=== PATIENT | male | born 1985 | race Hispanic/Latino ===

== ENCOUNTER 2018-08-18 17:19 | Observation (INO) | payer SELFPAY ==
--- NOTE | 2018-08-18 18:36 | RAD REPORT ---
EXAM DESCRIPTION: RAD - Chest Pa And Lat (2 Views) - 08/18/2018 6:31 pm CLINICAL HISTORY: Chest pain;Cough;Fever Chest pain. COMPARISON: No comparisons FINDINGS: Ill-defined opacities are present in both posterior lung bases as well as the right mid rodolfo ng and medial anterior left lung base likely representing pneumonia. The heart is normal in size. No displaced fractures. IMPRESSION: Multiple areas of infiltrate are seen bilaterally compatible with multifocal pneumonia.
[2018-08-18] MEDS ORDERED: IBUPROFEN 400 MG TAB ONE (18:52)
[2018-08-18] MEDS ORDERED: ALBUTEROL 2.5 MG/3 ML NEB SOL ONE (19:03)
[2018-08-18] MEDS ORDERED: IPRATROPIUM BROM 0.5MG/2.5ML ONE (19:03)
[2018-08-18 19:23] LABS: ALT/SGPT 26 U/L (12-78); AST/SGOT 8 U/L (15-37); Alkaline Phosphatase 80 U/L (45-117); BUN Blood Urea Nitrogen 16 mg/dL (7-18); Bicarbonate 29 mmol/L (21-32); Bilirubin Direct 0.1 mg/dL (0-0.2); Bilirubin Total 0.3 mg/dL (0.2-1.0); Glucose Level 93 mg/dL (74-106); Potassium 3.9 mmol/L (3.5-5.1); Protein, Total 8.5 g/dL (6.4-8.2); Sodium Level 138 mmol/L (136-145); Troponin (Emerg Dept Use Only) < 0.02 ng/mL (0.0-0.045)
[2018-08-18 19:25] LABS: Absolute Lymphocytes (CBC) 1.9 K/uL (0.7-4.9); Absolute Monocytes 0.9 K/uL (0.1-1.3); Absolute Neutrophil 8.8 K/uL (1.8-8.0); Basophils % 0.4 % (0-1.3); Eosinophils % 0.8 % (0-4.4); Hematocrit 42.9 % (39.6-49.0); Lymphocytes % 16.2 % (15.3-44.8); MPV 8.4 fL (7.6-11.3); Monocytes % 7.6 % (3.3-12.3); RBC Red Blood Cell Count 5.08 M/uL (4.33-5.43)
[2018-08-18] MEDS ORDERED: AZITHROMYCIN 500 MG/250 ML BAG ONE (19:35)
[2018-08-18] MEDS ORDERED: CEFTRIAXONE/SWI 1gm 1 GM/10 ML SYR ONE (19:35)
--- NOTE | 2018-08-18 21:04 | ER ---
Nurse's Notes [facility] Name: Frankie Garcia Age: 33 yrs Sex: Male : 1985 Arrival Date: 08/18/2018 Time: 17:23 Bed 28 Private MD: None, None Diagnosis: Pneumonia, unspecified organism-bilateral Presentation: 08/18 17:23 Presenting complaint: Patient states: i have this chest pain since yesterday, stabbing, hj heavy chest pain and its hard to breathe; pain is 10/10; denies radiating pain; denies N/V; reports been sick with flu for a couple of days;. Transition of care: patient was not received from another setting of care. Onset of symptoms was August 18, 2018. Risk Assessment: Do you want to hurt yourself or someone else? Patient reports no desire to harm self or others. Initial Sepsis Screen: Does the patient meet any 2 criteria? No. Patient's initial sepsis screen is negative. Does the patient have a suspected source of infection? No. Patient's initial sepsis screen is negative. Care prior to arrival: None. 17:23 Method Of Arrival: Ambulatory 17:23 Acuity: ELLIE 3 hj Triage Assessment: 17:26 General: Appears in no apparent distress. uncomfortable, Behavior is calm, cooperative, hj appropriate for age. Pain: Complains of pain in chest Pain currently is 10 out of 10 on a pain scale. Cardiovascular: Reports chest pain. Historical: - Allergies: 17:25 No Known Allergies; hj - Home Meds: 17:25 None [Active]; hj - PMHx: 17:25 None; hj - PSHx: 17:25 None; hj - Immunization history:: Adult Immunizations up to date. - Social history:: Smoking status: Patient uses tobacco products, Patient uses alcohol. - Ebola Screening: : Patient negative for fever greater than or equal to 101.5 degrees Fahrenheit, and additional compatible Ebola Virus Disease symptoms Patient denies exposure to infectious person Patient denies travel to an Ebola-affected area in the 21 days before illness onset. Screenin:26 Abuse screen: Denies threats or abuse. Denies injuries from another. Nutritional hj screening: No deficits noted. Tuberculosis screening: No symptoms or risk factors identified. Fall Risk None identified. Assessment: 17:27 Pain: Pain does not radiate. Pain began 1 day ago. hj 18:25 General: Appears uncomfortable, slender, well groomed, well developed, well nourished, tl3 Behavior is calm, cooperative, appropriate for age. Neuro: Level of Consciousness is awake, alert, obeys commands, Oriented to person, place, time, situation, Appropriate for age. Cardiovascular: Heart tones S1 S2 present Patient's skin is warm and dry. Rhythm is regular. Respiratory: Airway is patent Respiratory effort is even, unlabored, Respiratory pattern is regular, symmetrical. Respiratory: Reports cough that is hacking, persistent. GI: No deficits noted. No signs and/or symptoms were reported involving the gastrointestinal system. : No deficits noted. No signs and/or symptoms were reported regarding the genitourinary system. 20:29 Reassessment: Patient appears in no apparent distress at this time. No changes from tl3 previously documented assessment. Patient and/or family updated on plan of care and expected duration. Pain level reassessed. Patient is alert, oriented x 3, equal unlabored respirations, skin warm/dry/pink. 21:07 Reassessment: Patient appears in no apparent distress at this time. No changes from tl3 previously documented assessment. Patient and/or family updated on plan of care and expected duration. Pain level reassessed. Patient is alert, oriented x 3, equal unlabored respirations, skin warm/dry/pink. pt quietly watching TV, in no acute distress, no needs at this time. 23:22 Reassessment: Patient appears in no apparent distress at this time. No changes from tl3 previously documented assessment. Patient and/or family updated on plan of care and expected duration. Pain level reassessed. Patient is alert, oriented x 3, equal unlabored respirations, skin warm/dry/pink. report called to Tigist WINKLER. Vital Signs: 17:27 BP 121 / 81; Pulse 106; Resp 20; Temp 100.8(O); Pulse Ox 97% on R/A; Weight 99.79 kg; hj Height 6 ft. 0 in. (182.88 cm); Pain 10/10; 20:29 BP 118 / 92; Pulse 104; Resp 26; Pulse Ox 98% on R/A; tl3 21:07 BP 111 / 79; Pulse 92; Resp 22; Pulse Ox 94% on R/A; tl3 23:22 BP 102 / 69; Pulse 85; Resp 22; Pulse Ox 94% ; tl3 17:27 Body Mass Index 29.84 (99.79 kg, 182.88 cm) ED Course: 17:23 Patient arrived in ED. mr 17:23 None, None is Private Physician. mr 17:25 Triage completed. hj 17:26 Arm band placed on right wrist. hj 17:27 Patient has correct armband on for positive identification. Placed in gown. Bed in low hj position. Call light in reach. Side rails up X 1. court recording monitor on. Pulse ox on. NIBP on. 17:27 Patient maintains SpO2 saturation greater than 95% on room air. hj 17:46 EKG done, by surveying technician. reviewed by Alvarez Aleman MD. sm3 18:09 Anisa Mclaughlin, CATHI is Primary Nurse. tl3 18:14 Jesse Pritchard ATM SERVICER is PHCP. pm1 18:14 Alvarez Aleman MD is Attending Physician. pm1 18:22 No provider procedures requiring assistance completed. Flu and/or RSV swab sent to lab. tl3 Inserted saline lock: 20 gauge in left antecubital area, using aseptic technique. Blood collected. 18:23 Patient moved to radiology. tl3 18:23 Chest Pa And Lat (2 Views) XRAY Sent. tl3 18:28 Chest Pa And Lat (2 Views) XRAY In Process Unspecified. EDMS 19:09 Initial lab(s) drawn, by ED staff, sent to lab. First set of blood cultures drawn LAC jp3 via 20-gauge IV. 19:22 Second set of blood cultures drawn LAC via 21-gauge Butterfly needle. jp3 19:27 Blood Culture Adult (2) Sent. jp3 19:27 Lactate Sent. jp3 21:02 Jennifer Sierra MD is Hospitalizing Provider. pm1 23:22 Patient admitted, IV remains in place. tl3 Administered Medications: 18:46 Drug: Ibuprofen 800 mg Route: PO; tl3 19:01 Follow up: Response: No adverse reaction tl3 18:55 Drug: Albuterol 2.5 mg Route: Inhalation; tl3 21:07 Follow up: Response: No adverse reaction tl3 18:55 Drug: AtroVENT Aerosol 0.5 mg Route: Inhalation; tl3 21:05 Follow up: Response: No adverse reaction tl3 19:30 Drug: Rocephin 1 grams {Note: IVP.} Route: IV; Rate: calculated rate; Site: left tl3 antecubital; 19:38 Follow up: IV Status: Completed infusion; IV Intake: 20ml tl3 19:37 Drug: AZITHromycin 500 mg Route: IVPB; Infused Over: 1 hrs; Site: left antecubital; tl3 Delivery: Primary tubing; 21:04 Follow up: IV Status: Completed infusion; IV Intake: 250ml tl3 Intake: 19:38 IV: 20ml; Total: 20ml. tl3 21:04 IV: 250ml; Total: 270ml. tl3 Outcome: 21:03 Decision to Hospitalize by Provider. pm1 23:22 Admitted to Tele accompanied by tech, via wheelchair, with chart, Report called to 3 Tigist WINKLER 23:26 Condition: stable tl3 23:43 Patient left the ED. 3 Signatures: Dispatcher [employer] EDLora Ybarra mr Jim Yeh RN RN Jesse Pritchard NP ATM SERVICER pm1 Anisa Mclaughlin RN RN 3 Brittany Jenkins 3 Calvin Flores jp3 Corrections: (The following items were deleted from the chart) 17:26 17:23 Presenting complaint: Patient states: i have this chest pain since yesterday, hj stabbing, heavy chest pain and its hard to breathe; pain is 10/10; denies radiating pain; denies N/V; hj 17:30 17:27 Pulse 106bpm; Resp 20bpm; Pulse Ox 97% RA; Temp 100.8F Oral; 99.79 kg; Height 6 hj ft. 0 in.; BMI: 29.8; Pain 10/10; hj
--- NOTE | 2018-08-18 21:04 | EDPHYS ---
Physician Documentation [facility] Name: Frankie Garcia Age: 33 yrs Sex: Male : 1985 Arrival Date: 08/18/2018 Time: 17:23 Bed 28 Private MD: None, None ED Physician Alvarez Aleman HPI: 08/18 20:00 This 33 yrs old Male presents to ER via Ambulatory with complaints of Chest pm1 Pain. 20:00 The patient or guardian reports chest pain that is located primarily in the anterior pm1 chest wall, right. The pain does not radiate. Associated signs and symptoms: Pertinent positives: cough, shortness of breath, Fever, Pertinent negatives: abdominal pain, nausea, vomiting, Diarrhea. The chest pain is described as aching. Duration: The patient or guardian reports a single episode, that is still ongoing. Modifying factors: The symptoms are alleviated by nothing. the symptoms are aggravated by nothing. The patient has not recently seen a physician. Historical: - Allergies: 17:25 No Known Allergies; hj - Home Meds: 17:25 None [Active]; hj - PMHx: 17:25 None; hj - PSHx: 17:25 None; hj - Immunization history:: Adult Immunizations up to date. - Social history:: Smoking status: Patient uses tobacco products, Patient uses alcohol. - Ebola Screening: : Patient negative for fever greater than or equal to 101.5 degrees Fahrenheit, and additional compatible Ebola Virus Disease symptoms Patient denies exposure to infectious person Patient denies travel to an Ebola-affected area in the 21 days before illness onset. ROS: 20:00 Eyes: Negative for injury, pain, redness, and discharge, ENT: Negative for injury, pm1 pain, and discharge, Neck: Negative for injury, pain, and swelling. 20:00 Cardiovascular: Negative for chest pain, palpitations, and edema. 20:00 Abdomen/GI: Negative for abdominal pain, nausea, vomiting, diarrhea, and constipation, Back: Negative for injury and pain, : Negative for injury, bleeding, discharge, and swelling, MS/Extremity: Negative for injury and deformity, Skin: Negative for injury, rash, and discoloration, Neuro: Negative for headache, weakness, numbness, tingling, and seizure. 20:00 Constitutional: Positive for fever, Negative for poor PO intake. 20:00 Respiratory: Positive for cough, shortness of breath, Negative for sputum production, wheezing. Exam: 20:00 Constitutional: This is a well developed, well nourished patient who is awake, alert, pm1 and in no acute distress. Head/Face: Normocephalic, atraumatic. Eyes: Pupils equal round and reactive to light, extra-ocular motions intact. Lids and lashes normal. Conjunctiva and sclera are non-icteric and not injected. Cornea within normal limits. Periorbital areas with no swelling, redness, or edema. ENT: Nares patent. No nasal discharge, no septal abnormalities noted. Tympanic membranes are normal and external auditory canals are clear. Oropharynx with no redness, swelling, or masses, exudates, or evidence of obstruction, uvula midline. Mucous membranes moist. Neck: Trachea midline, no thyromegaly or masses palpated, and no cervical lymphadenopathy. Supple, full range of motion without nuchal rigidity, or vertebral point tenderness. No Meningismus. Chest/axilla: Normal chest wall appearance and motion. Nontender with no deformity. No lesions are appreciated. Cardiovascular: Regular rate and rhythm with a normal S1 and S2. No gallops, murmurs, or rubs. Normal PMI, no JVD. No pulse deficits. 20:00 Abdomen/GI: Soft, non-tender, with normal bowel sounds. No distension or tympany. No guarding or rebound. No evidence of tenderness throughout. Back: No spinal tenderness. No costovertebral tenderness. Full range of motion. Skin: Warm, dry with normal turgor. Normal color with no rashes, no lesions, and no evidence of cellulitis. MS/ Extremity: Pulses equal, no cyanosis. Neurovascular intact. Full, normal range of motion. 20:00 Respiratory: the patient does not display signs of respiratory distress, Respirations: normal, Breath sounds: wheezing: is scattered. 20:00 Neuro: Orientation: is normal, Motor: is normal, moves all fours. Vital Signs: 17:27 BP 121 / 81; Pulse 106; Resp 20; Temp 100.8(O); Pulse Ox 97% on R/A; Weight 99.79 kg; hj Height 6 ft. 0 in. (182.88 cm); Pain 10/10; 20:29 BP 118 / 92; Pulse 104; Resp 26; Pulse Ox 98% on R/A; tl3 21:07 BP 111 / 79; Pulse 92; Resp 22; Pulse Ox 94% on R/A; tl3 23:22 BP 102 / 69; Pulse 85; Resp 22; Pulse Ox 94% ; tl3 17:27 Body Mass Index 29.84 (99.79 kg, 182.88 cm) MDM: 18:30 Patient medically screened. pm1 20:00 Data reviewed: vital signs. Data interpreted: Pulse oximetry: on room air is 98 %. pm1 Interpretation: normal. 21:01 Physician consultation: Jennifer Sierra MD was contacted at 21:01, regarding admission, pm1 patient's condition, and will see patient in ED. 08/18 18:14 Order name: Flu; Complete Time: 19:10 pm1 08/18 18:52 Order name: Troponin (emerg Dept Use Only); Complete Time: 19:24 pm1 08/18 18:52 Order name: Basic Metabolic Panel; Complete Time: 19:24 pm1 08/18 18:52 Order name: Blood Culture Adult (2) pm1 08/18 18:52 Order name: CBC with Diff; Complete Time: 19:49 pm1 08/18 18:52 Order name: Lactate; Complete Time: 19:49 pm1 08/18 18:14 Order name: Chest Pa And Lat (2 Views) XRAY; Complete Time: 18:44 pm1 08/18 18:52 Order name: LFT's; Complete Time: 19:24 pm1 08/18 18:52 Order name: Procalcitonin; Complete Time: 19:49 pm1 08/18 17:52 Order name: EKG; Complete Time: 17:52 08/18 18:52 Order name: Labs collected and sent; Complete Time: 18:55 pm1 08/18 18:52 Order name: O2 Per Protocol; Complete Time: 18:55 pm1 08/18 18:52 Order name: O2 Sat Monitoring; Complete Time: 18:55 pm1 Administered Medications: 18:46 Drug: Ibuprofen 800 mg Route: PO; tl3 19:01 Follow up: Response: No adverse reaction tl3 18:55 Drug: Albuterol 2.5 mg Route: Inhalation; tl3 21:07 Follow up: Response: No adverse reaction tl3 18:55 Drug: AtroVENT Aerosol 0.5 mg Route: Inhalation; tl3 21:05 Follow up: Response: No adverse reaction tl3 19:30 Drug: Rocephin 1 grams {Note: IVP.} Route: IV; Rate: calculated rate; Site: left tl3 antecubital; 19:38 Follow up: IV Status: Completed infusion; IV Intake: 20ml tl3 19:37 Drug: AZITHromycin 500 mg Route: IVPB; Infused Over: 1 hrs; Site: left antecubital; tl3 Delivery: Primary tubing; 21:04 Follow up: IV Status: Completed infusion; IV Intake: 250ml tl3 Disposition: 08/19 09:42 Co-signature as Attending Physician, Alvarez Aleman MD I agree with the assessment and kdr plan of care. Disposition: 08/18/18 21:03 Hospitalization ordered by Jennifer Sierra for Inpatient Admission. Preliminary diagnosis is Pneumonia, unspecified organism - bilateral. - Bed requested for Telemetry/MedSurg (Inpatient). - Status is Inpatient Admission. tl3 - Condition is Stable. - Problem is new. - Symptoms have improved. UTI on Admission? No Signatures: Dispatcher [employer] EDMS Alvarez Aleman MD MD [facility] Jim Yeh RN RN Adelina Orr RN RN Jesse Pritchard, [employer] EQUIPMENT TECH pm1 Anisa Mclaughlin RN RN tl3 Corrections: (The following items were deleted from the chart) 08/18 23:07 21:03 Hospitalization Ordered by Jennifer Sierra MD for Inpatient Admission. Preliminary cg diagnosis is Pneumonia, unspecified organism - bilateral. Bed requested for Telemetry/MedSurg (Inpatient). Status is Inpatient Admission. Condition is Stable. Problem is new. Symptoms have improved. UTI on Admission? No. pm1 23:43 23:07 08/18/2018 21:03 Hospitalization Ordered by Jennifer Sierra MD for Inpatient tl3 Admission. Preliminary diagnosis is Pneumonia, unspecified organism - bilateral. Bed requested for Telemetry/MedSurg (Inpatient). Status is Inpatient Admission. Condition is Stable. Problem is new. Symptoms have improved. UTI on Admission? No. cg
--- NOTE | 2018-08-18 22:32 | P.HP ---
Certification for Inpatient Patient admitted to: Inpatient With expected LOS: >2 Midnights Practitioner: I am a practitioner with admitting privileges, knowledge of patient current condition, hospital course, and medical plan of care. Services: Services provided to patient in accordance with Admission requirements found in Title 42 Section 412.3 of the Code of Federal Regulations Patient History Date of Service: 08/18/18 Reason for admission: bilateral pneumonia History of Present Illness: Mr Garcia is a 33 years old male who about 1 week ago start with flu like symptoms. For the last couple of days, he was feeling progressively worse, with subjective fever, sweating episodes, productive cough, and right side chest pain , 10/10 of intensity, worsening with breathing movements. He was taking over the counter medication without any improvement. At arrival, he was febrile 100.8 F, tachycardic 108 bpm, O2 sat 97% on RA. Lab work shows leukocytosis 11.7K, no bands, with normal lactate and procalcitonin. CXR remarkable for bilateral patchy infiltrate consistent with pneumonia. Home medications list reviewed: Yes - Past Medical/Surgical History Past Medical History: Reviewed- Non-Contributory Past Surgical History: Reviewed- Non-Contributory - Family History Family History: Reviewed- Non-Contributory - Social History Smoking Status: Current every day smoker Counseled patient to stop smoking for: less than 10 minutes Smoking therapy provided: Yes Patient receptive to therapy: No Alcohol use: Yes CD- Drugs: No Place of Residence: Home Review of Systems 10-point ROS is otherwise unremarkable Physical Examination - Physical Exam General: Alert, In no apparent distress HEENT: Atraumatic, PERRLA, Mucous membr. moist/pink, EOMI, Sclerae nonicteric Neck: Supple, 2+ carotid pulse no bruit, No LAD, Without JVD or thyroid abnormality Respiratory: Normal air movement, Crackles/rales (bibasilar crackles) Cardiovascular: Regular rate/rhythm, Normal S1 S2 Gastrointestinal: Normal bowel sounds, No tenderness Musculoskeletal: No tenderness Integumentary: No rashes Neurological: Normal gait, Normal speech, Normal strength at 5/5 x4 extr, Normal tone, Normal affect Lymphatics: No axilla or inguinal lymphadenopathy - Studies Laboratory Data (last 24 hrs) 08/18/18 18:23: WBC 11.7 H, Hgb 14.5, Hct 42.9, Plt Count 404 08/18/18 18:23: Sodium 138, Potassium 3.9, BUN 16, Creatinine 1.05, Glucose 93, Total Bilirubin 0.3, AST 8 L, ALT 26, Alkaline Phosphatase 80 Microbiology Data (last 24 hrs): 08/18/18 18:20 Nasopharnyx Influenza Type A Antigen Screen - Final 08/18/18 18:20 Nasopharnyx Influenza Type B Antigen Screen - Final Assessment and Plan - Problems (Diagnosis) (1) Bilateral pneumonia Current Visit: Yes Status: Acute Qualifiers: Pneumonia type: due to unspecified organism Lung location: unspecified part of lung Qualified Code(s): J18.9 - Pneumonia, unspecified organism (2) Tobacco abuse Current Visit: Yes Status: Acute - Plan The patient will be admitted to the hospital due to bilateral pneumonia. He is hemodynamically stable. Will order empiric treatment with IV Levaquin. Start breathing treatments as needed, pain medication for pleuritic chest pain. Consult Dr Montano for further recommendations. - Advance Directives Does patient have a Living Will: No Does patient have a Durable POA for Healthcare: No - Code Status/Comfort Care Code Status Assessed: Yes Code Status: Full Code
[2018-08-18] MEDS ORDERED: Levofloxacin 750mg IV 750 MG/150 ML BAG IV SCH (23:31)
[2018-08-18] MEDS ORDERED: NA CHLORIDE 0.9% 1,000 ML IV SCH (23:31)
[2018-08-18] MEDS ORDERED: ALBUTEROL 2.5 MG/3 ML NEB SOL NEB PRN (23:31)
[2018-08-18] MEDS ORDERED: ONDANSETRON 4 MG/2 ML VIAL IV PRN (23:31)
[2018-08-18] MEDS ORDERED: KETOROLAC 30 MG/ML INJ IV PRN (23:31)
[2018-08-18] MEDS ORDERED: ACETAMINOPHEN 500 MG TAB PO PRN (23:31)
[2018-08-18] MEDS ORDERED: IPRATROPIUM BROM 0.5MG/2.5ML NEB PRN (23:31)
[2018-08-19 04:06] LABS: Absolute Lymphocytes (CBC) 2.3 K/uL (0.7-4.9); Absolute Monocytes 1.3 K/uL (0.1-1.3); Absolute Neutrophil 5.9 K/uL (1.8-8.0); Eosinophils % 1.6 % (0-4.4); Hematocrit 39.5 % (39.6-49.0); Lymphocytes % 23.3 % (15.3-44.8); MPV 7.9 fL (7.6-11.3); Monocytes % 13.2 % (3.3-12.3); RBC Red Blood Cell Count 4.67 M/uL (4.33-5.43)
[2018-08-19 04:18] LABS: BUN Blood Urea Nitrogen 12 mg/dL (7-18); Bicarbonate 30 mmol/L (21-32); Glucose Level 107 mg/dL (74-106); Sodium Level 141 mmol/L (136-145)
--- NOTE | 2018-08-19 06:29 | EKG ---
Test Date: 2018-08-18 Test Time: 17:26:17 Inspector And Clipper: EVARISTO MEASUREMENT RESULTS: Intervals: Rate: 102 HI: 124 QRSD: 84 QT: 320 QTc: 417 [place]: P: 46 HI: 124 QRS: 99 T: 22 INTERPRETIVE STATEMENTS: Sinus tachycardia Rightward axis Borderline ECG No previous ECG available for comparison Electronically Signed On 08-19-18 06:28:17 AUTOMOTIVE PARTS COUNTER ASSISTANT by Khurram Watson
[2018-08-19] MEDS ORDERED: INFLUENZA VACCINE (for 3y+) 0.5 ML DOSE IMVAC ONE (08:00)
--- NOTE | 2018-08-19 08:28 | P.CNS ---
Date of Consult: 08/19/18 Chief Complaint: bilateral pneumonia History of Present Illness: Patient is 33 years of age had a flu-like illness about a week ago his admission to this hospital was precipitated by a sudden onset of chest discomfort denies any fever chills chest pain and denies any shortness of breath cough sputum or hemoptysis is chest pain has resolved patient is an active mi smoker no medical history does not take any medications is not see any doctors Allergies No Known Allergies Allergy (Verified 08/19/18 00:07) Home Medications: NK [No Home Meds] 08/19/18 - Past Medical/Surgical History Diabetic: No - Family History Father Medical History: Heart disease Mother Medical History: Diabetes - Social History Alcohol use: Yes CD- Drugs: No Caffeine use: Yes Place of Residence: Home Review of Systems 10-point ROS is otherwise unremarkable Physical Examination Temp Pulse Resp BP Pulse Ox 97.9 F 84 17 122/73 96 08/19/18 04:00 08/19/18 04:00 08/19/18 04:00 08/19/18 04:00 08/19/18 04:00 General: Alert, In no apparent distress, Oriented x3 Neck: Supple Respiratory: Clear to auscultation bilaterally Cardiovascular: No edema, Regular rate/rhythm Gastrointestinal: Normal bowel sounds, Soft and benign Laboratory Data (last 24 hrs) 08/18/18 18:23: WBC 11.7 H, Hgb 14.5, Hct 42.9, Plt Count 404 08/18/18 18:23: Sodium 138, Potassium 3.9, BUN 16, Creatinine 1.05, Glucose 93, Total Bilirubin 0.3, AST 8 L, ALT 26, Alkaline Phosphatase 80 - Problems (1) Bilateral pneumonia Onset Date: 08/19/18 Current Visit: Yes Status: Acute Plan: Patient is 33 years of age admitted with sudden onset of chest pain that was preceded by a viral flu-like illness he is doing much better chest x-ray questionable patchy changes labs reviewed unremarkable pro calcitonin level is negative most likely he has had a viral pneumonitis patient can be discharged home on low-dose prednisone 10 mg twice a day for 10 days he is to follow up with me in 2 weeks vital signs are all satisfactory oxygenation is satisfactory slight fever since admission Dc IV fluids add Zithromax the time of discharge Qualifiers: Pneumonia type: due to unspecified organism Lung location: unspecified part of lung Qualified Code(s): J18.9 - Pneumonia, unspecified organism
[2018-08-19] MEDS ORDERED: ENOXAPARIN 40 MG/0.4 ML SQ SCH (09:00)
[2018-08-19] MEDS ORDERED: AZITHROMYCIN 250 MG TAB PO SCH (09:00)
[2018-08-19] MEDS ORDERED: predniSONE 20 MG TAB PO SCH (09:00)
[2018-08-19] MEDS ORDERED: BENZONATATE 100 MG CAP PO PRN (09:58)
--- NOTE | 2018-08-19 10:02 | P.DS ---
Admission Date: 08/18/18 Discharge Date: 08/19/18 Primary Care Provider: none Disposition: ROUTINE DISCHARGE Discharge Condition: FAIR Reason for Admission: bilateral pneumonia Consultations: Pulmonary-Dr. Motnano Procedures: CXR: COMPARISON: No comparisons FINDINGS: Ill-defined opacities are present in both posterior lung bases as well as the right mid lung and medial anterior left lung base likely representing pneumonia. The heart is normal in size. No displaced fractures. IMPRESSION: Multiple areas of infiltrate are seen bilaterally compatible with multifocal pneumonia. Medical Problem List: Bilateral pneumonia likely viral pneumonitis Tobacco abuse Brief History of Present Illness: 33-year-old male presented to the emergency room with cough, congestion and shortness of breath. Patient was ill about a week ago with a viral illness. Patient came to the ER for further evaluation. Hospital Course: Patient presented with shortness of breath and recent viral illness. Patient found to have bilateral pneumonia. Patient seen and evaluated by pulmonology. Chest x-ray reviewed. Pro calcitonin and lactic acid negative. Room-air saturations within normal range. Lab improved. Patient hemodynamically stable at discharge. Patient does not appear septic. Patient likely with underlying viral pneumonitis as per pulmonology. At discharge he will continue with Zithromax 250 mg for the next 4 days. Patient will also continue with prednisone 10 mg 1 pill twice daily for 10 days as well. Patient will also be provided Mucinex 600 mg twice daily for congestion, Tessalon Perles 100 mg 3 times a day as needed for cough and Pro air 2 puffs 3 times a day as needed for shortness of breath. Recommendation is for the patient follow up with pulmonology within 1 week to follow up this hospitalization. Recommendation is staying of recheck chest x-ray in 2-4 weeks to monitor resolution. Patient with tobacco abuse. Tobacco cessation addressed in detail. Vital Signs/Physical Exam: Temp Pulse Resp BP Pulse Ox 98.2 F 84 18 128/72 97 08/19/18 08:00 08/19/18 08:00 08/19/18 08:00 08/19/18 08:00 08/19/18 08:00 General: Alert, In no apparent distress, Oriented x3, Cooperative HEENT: Atraumatic, Normocephalic, Mucous membr. moist/pink Neck: Supple, No Thyromegaly Respiratory: Clear to auscultation bilaterally, Normal air movement Cardiovascular: Normal pulses, Regular rate/rhythm Gastrointestinal: Normal bowel sounds, Soft and benign, Non-distended, No tenderness, No masses, No rebound, No guarding Musculoskeletal: No erythema, No tenderness, No warmth Integumentary: No tenderness/swelling, No erythema, No warmth, No cyanosis Neurological: Normal speech, Normal strength at 5/5 x4 extr, Normal tone, Normal affect Laboratory Data at Discharge: WBC 9.7 K/uL (4.3-10.9) D 08/19/18 03:50 Hgb 13.3 g/dL (13.6-17.9) L 08/19/18 03:50 Hct 39.5 % (39.6-49.0) L 08/19/18 03:50 Plt Count 375 K/uL (152-406) 08/19/18 03:50 Sodium 141 mmol/L (136-145) 08/19/18 03:50 Potassium 4.0 mmol/L (3.5-5.1) 08/19/18 03:50 BUN 12 mg/dL (7-18) 08/19/18 03:50 Creatinine 0.77 mg/dL (0.55-1.3) 08/19/18 03:50 Glucose 107 mg/dL (74-106) H 08/19/18 03:50 Total Bilirubin 0.3 mg/dL (0.2-1.0) 08/18/18 18:23 AST 8 U/L (15-37) L 08/18/18 18:23 ALT 26 U/L (12-78) 08/18/18 18:23 Alkaline Phosphatase 80 U/L (45-117) 08/18/18 18:23 Home Medications: Albuterol Sulfate [Proair Hfa] 8.5 gm IH TID PRN #1 hfa.aer.ad 08/19/18 Azithromycin Tab [Zithromax*] 500 mg PO DAILY #4 tab 08/19/18 Benzonatate [Tessalon Perle*] 100 mg PO TID PRN #30 cap 08/19/18 Guaifenesin [Mucinex] 600 mg PO BID #30 tab.er.12h 08/19/18 predniSONE [Deltasone*] 10 mg PO BID #20 tab 08/19/18 New Medications: Albuterol Sulfate [Proair Hfa] 8.5 gm IH TID PRN #1 hfa.aer.ad PRN Reason: Shortness Of Breath Azithromycin Tab [Zithromax*] 500 mg PO DAILY #4 tab Benzonatate [Tessalon Perle*] 100 mg PO TID PRN #30 cap PRN Reason: Cough Guaifenesin [Mucinex] 600 mg PO BID #30 tab.er.12h predniSONE [Deltasone*] 10 mg PO BID #20 tab Patient Discharge Instructions: 1. Patient will need to follow up with a PCP to establish care and follow up this hospitalization. 2. Patient presented with shortness of breath and recent viral illness. Patient found to have bilateral pneumonia. Patient seen and evaluated by pulmonology. Pro calcitonin and lactic acid negative. Room-air saturations within normal range. Patient likely with underlying viral pneumonitis as per pulmonology. At discharge he will continue with Zithromax 250 mg for the next 4 days. Patient will also continue with prednisone 10 mg 1 pill twice daily for 10 days as well. Patient will also be provided Mucinex 600 mg twice daily for congestion, Tessalon Perles 100 mg 3 times a day as needed for cough and Pro air 2 puffs 3 times a day as needed for shortness of breath. Recommendation is for the patient follow up with pulmonology within 1 week to follow up this hospitalization. Recommendation is staying of recheck chest x-ray in 2-4 weeks to monitor resolution. Patient may return to work after 1 week. 3. Patient with tobacco abuse. Tobacco cessation addressed in detail. Diet: Regular Activity: Ad sami Time spent managing pt's care (in minutes): 55
[2018-08-19] MEDS ORDERED: GUAIFENESIN 600 MG SA TAB PO SCH (21:00)
== END 2018-08-19 13:31 | disposition home or self-care (01) ==
LOC: ER 17:19 → INTOOBSV 22:13 → ERHOLD 22:13 → 4TH 23:25
PROVIDERS: ADMIT Internal Medicine; ATTEND Internal Medicine
DX: J18.9 Pneumonia, unspecified organism (principal); F17.210 Nicotine dependence, cigarettes, uncomplicated
CPT/HCPCS: 36415; 71046; 80048; 80076; 83605; 84145; 84484; 85025; 87040; 87070; 87205; 87804; 93005; 94760; 96365; 96375; 99285; G0378; J0456; J0696; J1650; J2405; J7030; J7512

== ENCOUNTER 2018-08-24 22:50 | Emergency (ER) | payer SELFPAY ==
[2018-08-25] MEDS ORDERED: ALBUTEROL 2.5 MG/3 ML NEB SOL ONE (00:37)
[2018-08-25] MEDS ORDERED: IPRATROPIUM BROM 0.5MG/2.5ML ONE (00:37)
[2018-08-25 01:35] LABS: Absolute Lymphocytes (CBC) 1.4 K/uL (0.7-4.9); Absolute Neutrophil 10.7 K/uL (1.8-8.0); Basophils % 0.7 % (0-1.3); Eosinophils % 0.1 % (0-4.4); Hematocrit 42.9 % (39.6-49.0); Lymphocytes % 10.9 % (15.3-44.8); MPV 8.2 fL (7.6-11.3); Monocytes % 7.4 % (3.3-12.3); RBC Red Blood Cell Count 5.16 M/uL (4.33-5.43)
[2018-08-25 01:41] LABS: ALT/SGPT 25 U/L (12-78); AST/SGOT 9 U/L (15-37); Albumin 3.6 g/dL (3.4-5.0); Alkaline Phosphatase 75 U/L (45-117); BUN Blood Urea Nitrogen 17 mg/dL (7-18); Bicarbonate 29 mmol/L (21-32); Bilirubin Total 0.4 mg/dL (0.2-1.0); Glucose Level 126 mg/dL (74-106); Potassium 4.2 mmol/L (3.5-5.1); Protein, Total 7.8 g/dL (6.4-8.2); Sodium Level 140 mmol/L (136-145)
[2018-08-25 02:06] LABS: Blood Morphology Comment NOT SEEN (NOT SEEN); Platelet Estimate ADEQ
--- NOTE | 2018-08-25 02:10 | EDPHYS ---
Physician Documentation [facility] Name: Frankie Garcia Age: 33 yrs Sex: Male : 1985 Arrival Date: 08/24/2018 Time: 22:51 Bed 24 Private MD: ED Physician Mynor Mead HPI: 08/25 00:28 This 33 yrs old Male presents to ER via Ambulatory with complaints of Chest jmm Pain - hx of pneumonia. 00:28 The patient or guardian reports cough, described as moderate. Onset: The jmm symptoms/episode began/occurred gradually, 1 week(s) ago. Modifying factors: The symptoms are alleviated by nothing, the symptoms are aggravated by nothing. Associated signs and symptoms: Pertinent positives: fever. This is a 33 year old male with no chronic medical conditions that presents to the ED with right sided chest pain which radiates to the back. Patient was treated for pneumonia and is currently taking prednisone, albuterol, and benzonate. Historical: - Allergies: 08/24 23:16 No Known Allergies; ak1 - Home Meds: 23:16 None [Active]; ak1 - PMHx: 23:16 None; ak1 - PSHx: 23:16 None; ak1 - Immunization history:: Adult Immunizations up to date. - Social history:: Smoking status: Patient uses tobacco products, smokes one-half pack cigarettes per day. - Ebola Screening: : No symptoms or risks identified at this time. ROS: 08/25 00:28 Eyes: Negative for injury, pain, redness, and discharge, ENT: Negative for injury, jmm pain, and discharge, Neck: Negative for injury, pain, and swelling. Abdomen/GI: Negative for abdominal pain, nausea, vomiting, diarrhea, and constipation. Constitutional: Positive for body aches, chills, fever. Cardiovascular: Positive for chest pain, with cough, of the . Respiratory: Positive for cough. All other systems are negative. Exam: 00:28 Constitutional: This is a well developed, well nourished patient who is awake, alert, jmm and in no acute distress. Head/Face: atraumatic. Eyes: EOMI, no conjunctival erythema appreciated ENT: Moist Mucus Membranes Neck: Trachea midline, Supple Chest/axilla: Normal chest wall appearance and motion. Cardiovascular: Regular rate and rhythm. No edema appreciated 00:28 Respiratory: the patient does not display signs of respiratory distress, Respirations: normal, Breath sounds: are clear throughout. 00:28 Abdomen/GI: Inspection: abdomen appears normal, Bowel sounds: normal, Palpation: abdomen is soft and non-tender. 00:28 Back: ROM is normal. 00:28 Musculoskeletal/extremity: ROM: intact in all extremities. 00:28 Skin: Appearance: Color: normal in color. 00:28 Neuro: Orientation: is normal, Mentation: is normal, Memory: is normal. 00:28 Psych: Behavior/mood is pleasant, cooperative. Vital Signs: 08/24 23:16 BP 125 / 79; Pulse 106; Resp 18; Temp 100(O); Pulse Ox 96% on R/A; Weight 89.81 kg (R); ak1 Height 6 ft. 0 in. (182.88 cm) (R); Pain 6/10; 23:51 BP 136 / 80; Pulse 77; Resp 20; Pulse Ox 95% on R/A; aj1 08/25 00:56 BP 112 / 67; Pulse 93; Resp 20; Temp 98.5(O); Pulse Ox 97% on R/A; ak1 02:19 BP 109 / 68; Pulse 89; Resp 18; Temp 98.6(O); Pulse Ox 98% on R/A; Pain 0/10; mg2 08/24 23:16 Body Mass Index 26.85 (89.81 kg, 182.88 cm) ak1 MDM: 00:11 Patient medically screened. [facility] 02:08 Data reviewed: vital signs, nurses notes. Counseling: I had a detailed discussion with bill the patient and/or guardian regarding: the historical points, exam findings, and any diagnostic results supporting the discharge/admit diagnosis, lab results, radiology results, the need for outpatient follow up, to return to the emergency department if symptoms worsen or persist or if there are any questions or concerns that arise at home. ED course: Repeat cxr similar to prior. No pleural effusion. Due to patient still being febrile. Will add levaquin. Patient given strict return precautions. Patient understood and agrees with the plan of care. . 08/25 00:54 Order name: CBC with Diff; Complete Time: 02:23 [facility] 08/25 00:54 Order name: CMP; Complete Time: 01:44 [facility] 08/25 00:54 Order name: Procalcitonin [facility] 08/25 00:54 Order name: Blood Culture Adult (2) [facility] 08/25 00:54 Order name: Lactate; Complete Time: 01:51 [facility] 08/25 01:44 Order name: Manual Differential; Complete Time: 02:23 [facility] 08/25 00:17 Order name: Chest Pa And Lat (2 Views) XRAY [facility] 08/25 00:55 Order name: Saline Lock; Complete Time: 01:15 [facility] Administered Medications: 00:35 Drug: DuoNeb (3:1) (2.5 mg - 0.5 mg) 3 ml Route: Nebulizer; ak1 01:15 Follow up: Response: No adverse reaction ak1 02:10 Drug: LevaQUIN 750 mg Route: PO; mg2 02:11 Follow up: Response: No adverse reaction; Medication administered at discharge. mg2 Disposition: 04:29 Co-signature as Attending Physician, Mynor Mead MD. pkl Disposition: 08/25/18 02:09 Discharged to Home. Impression: Pneumonia. - Condition is Stable. - Discharge Instructions: Community-Acquired Pneumonia, Adult. - Prescriptions for Levaquin 750 mg Oral Tablet - take 1 tablet by ORAL route once daily for 10 days; 10 tablet. Albuterol Sulfate 90 mcg/actuation Inhalation - inhale 1-2 puff by INHALATION route every 4-6 hours; 1 Inhaler. - Medication Reconciliation Form, Thank You Letter, Antibiotic Education, Prescription Opioid Use, Work release form form. - Follow up: Private Physician; When: 2 - 3 days; Reason: Recheck today's complaints, Continuance of care, Re-evaluation by your physician. Signatures: Dispatcher [employer] Mynor Guillermo MD MD pkLito Miller PA PA Linda Jay RN RN ak1 Herminio Ruiz, CATHI RN mg2 Corrections: (The following items were deleted from the chart) 02:23 02:09 08/25/2018 02:09 Discharged to Home. Impression: Pneumonia. Condition is Stable. mg2 Forms are Medication Reconciliation Form, Thank You Letter, Antibiotic Education, Prescription Opioid Use. Follow up: Private Physician; When: 2 - 3 days; Reason: Recheck today's complaints, Continuance of care, Re-evaluation by your physician. bill
--- NOTE | 2018-08-25 02:10 | ER ---
Nurse's Notes [facility] Name: Frankie Garcia Age: 33 yrs Sex: Male : 1985 Arrival Date: 08/24/2018 Time: 22:51 Bed 24 Private MD: Diagnosis: Pneumonia Presentation: 08/24 23:13 Presenting complaint: Patient states: chest pain with movement s/p hospital admission ak1 and discharge for pneumonia 08/19/18. Transition of care: patient was not received from another setting of care. Onset of symptoms is unknown. Risk Assessment: Do you want to hurt yourself or someone else? Patient reports no desire to harm self or others. 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 23:13 Method Of Arrival: Ambulatory ak1 23:13 Acuity: ELLIE 4 ak1 23:17 Note tylenol at 2215. ak1 08/25 02:19 Initial Sepsis Screen: Does the patient meet any 2 criteria? No. Patient's initial mg2 sepsis screen is negative. Does the patient have a suspected source of infection? No. Patient's initial sepsis screen is negative. Triage Assessment: 08/24 23:16 General: Appears in no apparent distress. Behavior is calm, cooperative. Pain: ak1 Complains of pain in chest. EENT: No signs and/or symptoms were reported regarding the EENT system. Neuro: No deficits noted. Cardiovascular: Reports chest pain, since 08/18/18. Respiratory: Reports pain with movement. GI: No signs and/or symptoms were reported involving the gastrointestinal system. : No signs and/or symptoms were reported regarding the genitourinary system. Derm: No signs and/or symptoms reported regarding the dermatologic system. Musculoskeletal: No signs and/or symptoms reported regarding the musculoskeletal system. Historical: - Allergies: 23:16 No Known Allergies; ak1 - Home Meds: 23:16 None [Active]; ak1 - PMHx: 23:16 None; ak1 - PSHx: 23:16 None; ak1 - Immunization history:: Adult Immunizations up to date. - Social history:: Smoking status: Patient uses tobacco products, smokes one-half pack cigarettes per day. - Ebola Screening: : No symptoms or risks identified at this time. Screenin:47 Abuse screen: Denies threats or abuse. Denies injuries from another. Nutritional aj1 screening: No deficits noted. Tuberculosis screening: No symptoms or risk factors identified. 08/25 00:35 Fall Risk None identified. ak1 Assessment: 08/24 23:47 General: Appears in no apparent distress. uncomfortable, Behavior is calm, cooperative, aj1 appropriate for age. Pain: Complains of pain in anterior aspect of right upper chest Pain does not radiate. Pain began one week ago. Pain: Aggravated by cough, deep breathing, movement. Neuro: Level of Consciousness is awake, alert, obeys commands. Cardiovascular: Reports chest pain, Heart tones S1 S2 present. Respiratory: Airway is patent Respiratory effort is even, unlabored, Respiratory pattern is regular, symmetrical, Breath sounds are diminished in left posterior lower lobe. GI: No signs and/or symptoms were reported involving the gastrointestinal system. : No signs and/or symptoms were reported regarding the genitourinary system. EENT: No signs and/or symptoms were reported regarding the EENT system. Derm: No signs and/or symptoms reported regarding the dermatologic system. Skin is pink, warm \T\ dry. normal. Musculoskeletal: No signs and/or symptoms reported regarding the musculoskeletal system. Circulation, motion, and sensation intact. 08/25 00:36 Reassessment: Patient appears in no apparent distress at this time. No changes from ak1 previously documented assessment. Patient and/or family updated on plan of care and expected duration. Pain level reassessed. Patient is alert, oriented x 3, equal unlabored respirations, skin warm/dry/pink. 01:34 Reassessment: report given to Herminio Santillan RN. ak1 Vital Signs: 08/24 23:16 BP 125 / 79; Pulse 106; Resp 18; Temp 100(O); Pulse Ox 96% on R/A; Weight 89.81 kg (R); ak1 Height 6 ft. 0 in. (182.88 cm) (R); Pain 6/10; 23:51 BP 136 / 80; Pulse 77; Resp 20; Pulse Ox 95% on R/A; aj1 08/25 00:56 BP 112 / 67; Pulse 93; Resp 20; Temp 98.5(O); Pulse Ox 97% on R/A; ak1 02:19 BP 109 / 68; Pulse 89; Resp 18; Temp 98.6(O); Pulse Ox 98% on R/A; Pain 0/10; mg2 08/24 23:16 Body Mass Index 26.85 (89.81 kg, 182.88 cm) ak1 ED Course: 08/24 22:51 Patient arrived in ED. am2 23:15 Triage completed. ak1 23:16 Arm band placed on Patient placed in an exam room, Patient notified of wait time. ak1 23:19 Vira Arrington, CATHI is Primary Nurse. aj1 23:41 Lito Funes PA is PHCP. jmm 23:41 Mynor Mead MD is Attending Physician. jmm 23:47 Patient has correct armband on for positive identification. Pulse ox on. NIBP on. aj1 23:47 No provider procedures requiring assistance completed. Patient maintains SpO2 aj1 saturation greater than 95% on room air. 08/25 00:28 Patient moved to radiology via wheelchair. kw 00:31 Chest Pa And Lat (2 Views) XRAY In Process Unspecified. EDMS 00:31 X-ray completed. Patient tolerated procedure well. kw 00:31 Patient moved back from radiology. kw 01:09 Initial lab(s) drawn, by mo, sent to lab. First set of blood cultures drawn Second set ak1 of blood cultures drawn by me. 01:15 Inserted saline lock: 20 gauge in right antecubital area, using aseptic technique. ak1 Blood collected. 02:18 IV discontinued, intact, bleeding controlled, No redness/swelling at site. Pressure mg2 dressing applied. Administered Medications: 00:35 Drug: DuoNeb (3:1) (2.5 mg - 0.5 mg) 3 ml Route: Nebulizer; ak1 01:15 Follow up: Response: No adverse reaction ak1 02:10 Drug: LevaQUIN 750 mg Route: PO; mg2 02:11 Follow up: Response: No adverse reaction; Medication administered at discharge. mg2 Outcome: 02:09 Discharge ordered by . [facility] 02:18 Discharged to home ambulatory, with family. mg2 02:18 Condition: stable 02:18 Discharge instructions given to patient, family, Instructed on discharge instructions, follow up and referral plans. medication usage, Demonstrated understanding of instructions, follow-up care, medications, Prescriptions given X 2. 02:23 Patient left the ED. mg2 Signatures: Dispatcher [employer] EDMS Vira Arrington, RN RN aj1 Lito Funes PA PA jmm Whitley, Kimberlee kw Krenek, Amber, RN RN ak1 Genesis Negrete am2 Herminio Ruiz RN RN mg2 Corrections: (The following items were deleted from the chart) 00:28 00:19 X-ray completed. Portable x-ray completed in exam room. Patient tolerated kw procedure well. kw
[2018-08-25] MEDS ORDERED: levoFLOXacin 750 MG TAB ONE (02:17)
--- NOTE | 2018-08-25 08:31 | RAD REPORT ---
EXAM DESCRIPTION: RAD - Chest Pa And Lat (2 Views) - 08/25/2018 12:32 am CLINICAL HISTORY: Right-sided chest pain, pneumonia A preliminary report was provided at the time of the study and reviewed prior to final report. COMPARISON: Two view chest August 18, 2018 TECHNIQUE: PA and lateral views of the chest were obtained. FINDINGS: The lungs are underinflated. Atelectasis and/or pneumonia changes are seen in each lung ba se improved slightly from comparison. In the right midlung field there is a 10-15 millimeter area of more spiculated or irregular parenchyma. This is still most likely part of an infiltrative process bu t needs continued follow-up to assure clearing. No mediastinal or hilar mass or lymphadenopathy susp ected. Trachea is midline. Heart size is normal and central vasculature is within normal limits. No pleural effusion or pneumo thorax seen. No acute bony finding noted. No aortic abnormality. IMPRESSION: Pneumonia and/ or atelectasis changes in each lung base improved from August 18. Small stellate lesion right midlung field is probably part of infiltrate process. However, continued close follow-up is needed. Repeat imaging is recommended approximately 6 weeks after recovery from th e acute event.
== END 2018-08-25 02:23 | disposition home or self-care (01) ==
LOC: ER 22:50
DX: J18.9 Pneumonia, unspecified organism (principal)
CPT/HCPCS: 36415; 71046; 80053; 83605; 84145; 85025; 87040; 94640; 99285